=== PATIENT | male | born 1960 | race Caucasian/White ===

== ENCOUNTER 2020-10-03 23:56 | Inpatient (IN) | payer MEDICAID, SELFPAY ==
[~2020-10-03] VITALS: Ht 170.2 cm; Wt 73.0 kg
--- NOTE | 2020-10-03 23:56 | NUR ---
BIBA BLS TO ER BED 8
--- NOTE | 2020-10-03 23:58 | NUR ---
Patient being evaluated by physician at bedside.
[2020-10-04] VITALS: BP 114/62
[2020-10-04] MEDS ORDERED: NACL 0.9% 1,000 ML IV ONE (00:05)
[2020-10-04] MEDS ORDERED: LACTULOSE 20 GM/30 ML UDC PO ONE (00:05)
--- NOTE | 2020-10-04 00:27 | NUR ---
anthony swab collected and sent to lab.
--- NOTE | 2020-10-04 00:29 | NUR ---
pt currently a/o x3, gcs 14. ciwa score of 4.
[2020-10-04 00:39] LABS: HEMATOCRIT 29.5 % (36-52); MEAN CORPUSCULAR HEMOGLOBIN 37 pg (27-31); MEAN CORPUSCULAR HGB CONC 34 g/dL (33-37); MEAN CORPUSCULAR VOLUME 108.1 fL (80-94); PLATELET COUNT (AUTO) 64 K/uL (140-450); RED BLOOD CELL COUNT(AUTO) 2.73 MIL/uL (4.20-6.10); RED CELL DISTRIBUTION WIDTH 15.3 % (11.6-13.7)
[2020-10-04 00:56] LABS: LYMPHOCYTES % (MANUAL) 15 % (20-46); MONOCYTES % (MANUAL) 13 % (5-12)
[2020-10-04 01:08] LABS: ALBUMIN 2.6 g/dL (3.4-5.0); ANION GAP 12.4 (8-16); ASPARTATE AMINOTRANSFERASE 129 U/L (15-37); CARBON DIOXIDE 23.5 mmol/L (21-32); CHLORIDE 101 mmol/L (98-107); GFR ARICAN-AMERICAN 98 mL/min (>90); GLUCOSE 130 mg/dL (74-106); SODIUM SERUM 134 mmol/L (136-145); UREA NITROGEN, BLOOD 21 mg/dL (7-18)
[2020-10-04 01:12] LABS: POTASSIUM 2.9 mmol/L (3.5-5.1)
[2020-10-04] MEDS ORDERED: POTASSIUM CHLORIDE 10 MEQ TABER PO ONE ×2 (01:30→01:32)
--- NOTE | 2020-10-04 03:07 | NUR ---
report given to TESS FLETCHER. pt currently a/o x 3, gcs 13. IV sites patent. pt will be admitted under the care of Dr. Escobedo. will be going to room 106A.
[2020-10-04 04:00] VITALS: BP 136/76
--- NOTE | 2020-10-04 04:00 | NUR ---
ADMITTED PATIENT FROM ER VIA GURNEY. PATIENT A/A/OX1, PT UNSTEADY, AMBULATES WITH ASSISTS ONLY. PATIENT WENT TO THE BATHROOM TO HAVE A BOWEL MOVEMENT. PATIENT TOOK SO LONG IN THE BATHROOM. HELPED PT CHANGED TO A GOWN AND HELPED BACK IN BED, NOTED THAT THE PATIENT HAD 2 DIARRHEA WHILE IN THE BATHROOM. PATIENT WAS GIVEN A LACTULOSE IN ER. PT DENIES ANY PAIN, CHEST PAIN, PALPITATIONS AND DIZZINESS. VSS, AFEBRILE , SATING 98% ON RA. ST ON TELE MONITOR, HR-106. ORIENTED THE PATIENT TO THE ROOM SETTING AND USE OF CALL LIGHT SYSTEM. FALL PRECAUTION IMPLEMENTED. INSTRUCTED NOT TO GET OUT OF BED WITHOUT ASSISTANCE. PATIENT VERBALIZED UNDERSTANDING WITH THE POC. CALL LIGHT WITHIN REACH. WILL CONTINUE POC AND MONITORING.
--- NOTE | 2020-10-04 05:00 | NUR ---
PAGED DR FOX TO OBTAIN AN ADMISSION ORDER FOR THE PATIENT. AWAITING FOR MD TO CALL BACK.
--- NOTE | 2020-10-04 06:38 | NUR ---
PATIENT STABLE. NO ACUTE EVENT THROUGHOUT THE NIGHT. NOT IN ANY DISTRESS AND NO COMPLAIN AT THIS TIME. ALL NEEDS ATTENDED CALL LIGHT WITHIN REACH. WILL ENDORSE THE PATIENT TO THE ONCOMING RN FOR CONTINUITY OF CARE.
--- NOTE | 2020-10-04 07:01 | NUR ---
PATIENT HAS BEEN SCREENED AND CATEGORIZED MODERATE NUTRITION RISK. PATIENT WILL BE SEEN WITHIN 3-5 DAYS OF ADMISSION. 10/08/20-10/10/20 LIZZETH MOORE MS, RDN
--- NOTE | 2020-10-04 07:05 | NUR ---
RECEIVED BEDSIDE REPORT FROM CORE RESCUER NURSE FOR CONTINUITY OF CARE. PT IS ASLEEP. CHEST RISE AND FALL IS SYMMETRICAL. NO RESPIRATORY DISTRESS NOTED. SR ON TELE MONITOR. PT IS AMBULATORY WITH STANDBY ASSISTANCE. FALL PRECAUTIONS IN PLACE. SKIN IS WARM AND DRY. ABRASION TO THE LEFT ELBOW WITH DRESSING INTACT. IV IS IN THE RIGHT FOREARM 18 GAUGE RUNNING NS AT 100 ML PER HOUR PER ORDER. PT IS STABLE AT THIS TIME. PLAN OF CARE DISCUSSED.
--- NOTE | 2020-10-04 07:18 | NUR ---
ENDORSED THE PATIENT TO RN'S EMERSON AND PEGGY FOR CONTINUITY OF CARE. PATIENT STABLE. SIGNING OFF.
[2020-10-04 08:00] VITALS: BP 100/63
[2020-10-04] MEDS ORDERED: HYDROcodone/APAP 7.5/325 MG 1 TAB PO PRN (08:10)
[2020-10-04] MEDS ORDERED: ONDANSETRON 4 MG/2 ML VIAL IM/IVP PRN (08:10)
[2020-10-04] MEDS ORDERED: DOCUSATE SODIUM 100 MG GELCAP PO PRN (08:10)
[2020-10-04] MEDS ORDERED: guaiFENesin DM 200/20 MG-10 ML 10 ML UDC PO PRN (08:10)
[2020-10-04] MEDS ORDERED: ZOLPIDEM 5 MG TAB PO PRN (08:10)
[2020-10-04] MEDS ORDERED: POTASSIUM CHLORIDE 10 MEQ TABER PO PRN (08:10)
[2020-10-04] MEDS ORDERED: LORazepam 2 MG/ML VIAL IVP PRN (08:10)
[2020-10-04] MEDS ORDERED: ACETAMINOPHEN 325 MG TAB PO PRN (08:10)
[2020-10-04] MEDS ORDERED: MULTIVITAMIN-12 10 ML, THIAMINE 100 MG, FOLIC ACID 1 MG, MAGNESIUM SULFATE 50% 2,000 MG... IV SCH ×5 (09:00)
[2020-10-04] MEDS: PANTOPRAZOLE 40 MG TABEC PO SCH (09:15)
--- NOTE | 2020-10-04 09:30 | NUR ---
PT IS AWAKE, EATING BREAKFAST AT BEDSIDE. IV FLUIDS WERE STARTED. PT IS A&OX2. APPEARS TO BE CONFUSED. NO RESPIRATORY DISTRESS NOTED. BREATHING IS UNLABORED. PT IS STABLE.
[2020-10-04 10:09] LABS: PROTHROMBIN TIME 12.7 secs (10.8-13.4)
[2020-10-04 10:21] LABS: CHOL/HDL RATIO 3.7 (1-4.5); FREE T4 (FREE THYROXINE) 1.19 ng/dL (0.76-1.46); MAGNESIUM 2.2 mg/dL (1.8-2.4); PHOSPHORUS 3.4 mg/dL (2.5-4.9); THYROID STIMULATING HORMONE 0.79 uIU/mL (0.34-3.74)
--- NOTE | 2020-10-04 11:30 | NUR ---
PT IS AWAKE, WATCHING TV IN BED. PT IS CONFUSED, BUT ABLE TO ANSWER SOME QUESTIONS APPROPRIATELY. A&OX2. BREATHING IS UNLABORED. PT DENIES PAIN. PT IS STABLE.
[2020-10-04 12:00] VITALS: BP 100/56
[2020-10-04] MEDS: LORazepam 1 MG TAB PO SCH ×2 (12:53→21:01)
--- NOTE | 2020-10-04 13:17 | NUR ---
RIGHT AC IV INFILTRATED. IV WAS REMOVED AND BLEEDING WAS CONTROLLED. NEW IV WAS STARTED ON FIRST ATTEMPT TO THE LFA 22 GAUGE. IV WAS FLUSHED AND PATENT. IV FLUIDS ARE NOW INFUSING.
--- NOTE | 2020-10-04 15:42 | NUR ---
US TECH AT BEDSIDE TO PERFORM ABDOMINAL US ON PT. PT HAS BEEN NPO SINCE BREAKFAST. WILL WAIT FOR RESULTS.
[2020-10-04 16:00] VITALS: BP 99/53
--- NOTE | 2020-10-04 17:00 | NUR ---
URINE SAMPLE COLLECTED AND SENT TO LAB. URINE WAS JEANNIE COLORED WITH STRONG ODOR. PT DENIED ANY PAIN DURING URINATION. PT IS BACK TO BED. NO DISTRESS NOTED.
--- NOTE | 2020-10-04 17:58 | NUR ---
SPOKE TO BROTHER IN LAW, ANDREW WISE, WITH VERBAL CONSENT OF PT. INFORMED HIM OF THE CONDITION OF THE PT AND ALL QUESTIONS WERE ANSWERED.
[2020-10-04 18:01] LABS: APPEARANCE,URINE CLEAR (CLEAR); BILIRUBIN,URINE 2+ (NEGATIVE); BLOOD, URINE 2+ (NEGATIVE); LEUKOCYTE ESTERASE ,URINE TRACE (NEGATIVE); NITRITE, URINE POSITIVE (NEGATIVE); UGLUCOSE NEGATIVE (NEGATIVE)
[2020-10-04 18:04] LABS: COLOR,URINE AMBER (YELLOW)
[2020-10-04 18:21] LABS: RBC,URINE 11-20 (MOD) /HPF (0-5); WBC,URINE 0-5 /HPF (0-5)
[2020-10-04 18:22] LABS: HYALINE CASTS, URINE 0-10 /LPF (None Seen)
--- NOTE | 2020-10-04 18:53 | NUR ---
TEXTED DR. FOX TO ASK IF HE WOULD LIKE TO REDRAW THE POTASSIUM LEVEL THE LAST ONE DRAWN WAS AT 0030 AM TODAY AND THE LEVEL WAS 2.9. INFORMED HIM THAT 20 MEQ KDUR WAS GIVEN AT THAT TIME. WILL WAIT FOR RESPONSE BACK.
--- NOTE | 2020-10-04 18:55 | NUR ---
DR. FOX RESPONDED BACK TO GIVE THE PT 40 MEQ IV KRIDER AND RECHECK POTASSIUM IN THE AM. WILL ADMINISTER ONCE VERIFIED.
[2020-10-04] MEDS ORDERED: KCL 20 MEQ/WATER INJ PREMIX 200 ML IV SCH (19:00)
[2020-10-04] MEDS: NACL 0.9% 1,000 ML IV SCH (19:24)
--- NOTE | 2020-10-04 19:26 | NUR ---
KCL 40 MEQ STARTED IV ORDERED FOR POTASSIUM LEVEL OF 2.9. MEDICATION EDUCATION WAS PROVIDED. PT VERBALIZED UNDERSTANDING.
--- NOTE | 2020-10-04 19:27 | NUR ---
ENDORSED PT TO ROUGH AND TRUEING MACHINE OPERATOR NURSE FOR CONTINUITY OF CARE. PT IS STABLE AT THIS TIME. PLAN OF CARE DISCUSSED.
--- NOTE | 2020-10-04 20:00 | NUR ---
RECEIVED PATIENT AWAKE AND ALERT IN BED. PT ON ROOM AIR. NO SOB OR C/O DISTRESS AT THIS TIME. BILATERAL LOWER EXTREMITY +2 PITTING EDEMA NOTED. PT ON TELE MONITORING. POC DISCUSSED WITH THE PATIENT. BED LOWERED WITH CALL LIGHT WITHIN REACH.
[2020-10-04 20:56] VITALS: BP 101/61
[2020-10-04 21:26] LABS: BARBITURATE, URINE NEGATIVE ng/ml (NEG <=200); BENZODIAZEPINE, URINE NEGATIVE ng/mL (NEG <=200); CANNABINOID, URINE NEGATIVE ng/mL (NEG <=50); COCAINE, URINE NEGATIVE ng/mL (NEG <=300); OPIATE, URINE NEGATIVE ng/mL (NEG <=2000); PHENCYCLIDINE SCREEN,URINE NEGATIVE ng/mL (NEG <=25)
[2020-10-05 00:04] VITALS: BP 93/51
--- NOTE | 2020-10-05 02:00 | NUR ---
PT ASLEEP IN BED. NO S/S OF DISTRESS NOTED
[2020-10-05 04:51] VITALS: BP 94/49
[2020-10-05] MEDS: NACL 0.9% 1,000 ML IV SCH ×3 (05:00→23:50)
--- NOTE | 2020-10-05 05:50 | NUR ---
PATIENT PULLED OUT HIS IV LINE. NEW LINE STARTED ON THE RIGHT FOREARM 20G. PT'S GOWN AND BED LINENS CHANGED Addendum: 10/05/20 at 0713 by Nathen Lovett RN LEFT FOREARM
[2020-10-05] MEDS: LORazepam 1 MG TAB PO SCH ×3 (06:23→21:52)
[2020-10-05 07:10] LABS: T4 (THYROXINE) 6.9 ug/dL (4.5-12.0)
[2020-10-05 07:11] LABS: BASOPHILS % (AUTO) 0.8 % (0.0-2.0); EOSINOPHILS # (AUTO) 0.2 K/uL (0-0.4); EOSINOPHILS % (AUTO) 3.8 % (0.0-4.0); HEMOGLOBIN 9.5 g/dL (12.0-18.0); LYMPHOCYTES # (AUTO) 1.1 K/uL (2.0-11.5); LYMPHOCYTES % (AUTO) 26.4 % (20.5-51.1); MEAN CORPUSCULAR HEMOGLOBIN 37 pg (27-31); MEAN CORPUSCULAR HGB CONC 34 g/dL (33-37); MEAN CORPUSCULAR VOLUME 108.9 fL (80-94); MONOCYTES # (AUTO) 0.7 K/uL (0.8-1.0); MONOCYTES % (AUTO) 17.2 % (1.7-9.3); NEUTROPHILS # (AUTO) 2.1 K/uL (1.8-7.7); NEUTROPHILS % (AUTO) 51.8 % (42.2-75.2); PLATELET COUNT (AUTO) 57 K/uL (140-450); RED BLOOD CELL COUNT(AUTO) 2.57 MIL/uL (4.20-6.10); RED CELL DISTRIBUTION WIDTH 14.9 % (11.6-13.7)
[2020-10-05 07:25] LABS: ANION GAP 10.4 (8-16); CARBON DIOXIDE 24.7 mmol/L (21-32); CREATININE 0.7 mg/dL (0.6-1.3); POTASSIUM 3.1 mmol/L (3.5-5.1)
--- NOTE | 2020-10-05 07:25 | NUR ---
PT REPORT GIVEN TO AM NURSE. PT ENDORSED IN STABLE CONDITION
--- NOTE | 2020-10-05 07:27 | NUR ---
RECEIVED REPORT FROM NIGHT NURSE. PER NIGHT NURSE, PT WAS FOUND ON THE STREET FOR ALCOHOL INTOXICATION. PT IS A&OX2. PT IS BREATHING ON ROOM AIR. PT IS ON A HEPATIC DIET AND HAD A SONIA MOVEMNT LAST NIGHT. PT HAS A DISTENDED ABDOMEN. PT HAS ABRASION ON LEFT ELBOW AND SCABS THROUGHOUT BODY. PT PULLED OUT HIS IV LAST NIGHT. PT HAS A LFA 20 G IV. PT IS SLEEPING AND APPEAR NOT TO BE IN DISTRESS. BED IS ALL THE WAY DOWN AND 2 SIDE RAILS ARE UP. SAFETY PRECAUTIONS ARE IN PLACE. WILL CONTINUE PLAN OF CARE. Addendum: 10/05/20 at 0756 by Lynn Cuba RN BANANA BAG GIVEN YESTERDAY, PITTING EDEMAS ON LOWER EXTREMITIES AND KDUR AND KRIDER GIVEN POTASSIUM LEVEL AT 2.9. LAST BOWEL MOVEMENT 10/04/20. WILL CONTINUE TO MONITOR.
[2020-10-05 08:00] VITALS: BP 102/58
[2020-10-05] MEDS: FOLIC ACID 1 MG TAB PO SCH (09:21)
[2020-10-05] MEDS: THIAMINE 100 MG TAB PO SCH (09:21)
[2020-10-05] MEDS: PANTOPRAZOLE 40 MG TABEC PO SCH (09:22)
[2020-10-05] MEDS: MULTIVITAMIN 1 TAB PO SCH (09:23)
[2020-10-05] MEDS: LACTULOSE 20 GM/30 ML UDC PO SCH (09:25)
--- NOTE | 2020-10-05 09:32 | NUR ---
ADMINISTERED SCHEDULED MEDICATIONS PER MD ORDER. ADMINISTERED 4MEQ K-DUR. POTTASIUM LEVEL IS 2.9. WRAPPER SORTER ADMINISTERED A K-RIDER LAST NIGHT. SEIZURE PRECAUTIONS ARE IN PLACE WITH PADDEDD SIDE RAILS. PT IS A&OX2. SAFETY PRECAUTIONS ARE IN PLACE. WILL CONTINUE TO MONITOR.
--- NOTE | 2020-10-05 11:57 | NUR ---
SPOKE TO PT BROTHER IN LAW ANDREW TO GET UPDATES AND STATUS OF THE PATIENT. WILL CONTINUE TO MONITOR.
--- NOTE | 2020-10-05 13:00 | NUR ---
ASSESSES WOUND ON LEFT ELBOW WHICH MEASURES 1CM BY 2CM. WOUND HAD NO DRAINAGE AND APPEARED TO BE INTACT. WOUND BED WAS PINK AND WHITE. CLEANED WOUND WITH WOUND DIAPHRAGM BUILDER. APPLIED CURAD AND COVERED IT WITH GAUZE. APPLIED DRESSSING AROUND ELBOW TO SECURE THE CURAD. PT TOLERATED THE WOUND DRESSING CHANGE WELL. PT DOES NOT COMPPLAIN OF PAIN. PT WAS EDUCATED ON NOT TOUCHING WOUND AND WASHING HANDS FREQUENTLY TO PREVENT INFECTION. PT VERBALIZED HE UNDERSTOOD. PT IS STABLE AND UNDER NO APPARENT DISTRESS. SAFETY PROTOCOLS ARE IN PLACE. CALL LIGHT IS WITHIN REACH. WILL CONTINUE TO MONITOR.
--- NOTE | 2020-10-05 13:01 | NUR ---
HELD ATIVAN DUE TO BP BEING 91/52, SC: 85. PT IS NOT UNDER DISTRESS. PT IS STABLE. WILL CONTINUE TO RE ASSESS PT. CALL LIGHT IS WITHIN REACH. SAFETY PROTOCOLS ARE IN PLAC. WILL CONTINUE TO MONITOR.
--- NOTE | 2020-10-05 15:55 | NUR ---
PT BLOOD CULTURE POSITIVE FOR GRAM NEGATIVE RODS DR [place] AWARE
[2020-10-05 16:00] VITALS: BP 119/52
[2020-10-05] MEDS ORDERED: LEVOFLOXACIN 750 MG/D5W PREMIX 150 ML IV SCH (16:00)
--- NOTE | 2020-10-05 16:08 | NUR ---
LEVOFLOXACIN 750 MG IV GIVEN INFUSING WELL AT 100 MLS/HR. NO DISTRESS NOTED PT IS RESTING, WILL CONTINUE TO MONITOR.
--- NOTE | 2020-10-05 19:30 | NUR ---
ENDORSED TO NIGHT NURSE FOR CONTINUITY OF CARE.
--- NOTE | 2020-10-05 19:31 | NUR ---
RECEIVED REPORT FROM AM NURSE. PATIENT IN BED LYING AWAKE, ALERT, NO SOB. RESPIRATION EVEN UNLABORED. AFEBRILE. SKIN WARM AND DRY TO TOUCH. ATE 100% OF HIS DINNER. DENIES PAIN. IVF NS INFUSING AT 100 ML/HR ON THE LFA TOLERATING WELL. SAFETY MEASURES IN PLACE.
--- NOTE | 2020-10-05 21:52 | NUR ---
MEDICATION GIVEN SCHEDULED.
[2020-10-06] VITALS: BP 107/62
[2020-10-06] MEDS: LORazepam 1 MG TAB PO SCH ×3 (05:19→20:14)
[2020-10-06 06:32] LABS: BASOPHILS % (AUTO) 0.9 % (0.0-2.0); EOSINOPHILS # (AUTO) 0.1 K/uL (0-0.4); EOSINOPHILS % (AUTO) 3.2 % (0.0-4.0); HEMATOCRIT 26.5 % (36-52); HEMOGLOBIN 8.9 g/dL (12.0-18.0); LYMPHOCYTES # (AUTO) 1.1 K/uL (2.0-11.5); LYMPHOCYTES % (AUTO) 27.9 % (20.5-51.1); MEAN CORPUSCULAR HEMOGLOBIN 37 pg (27-31); MEAN CORPUSCULAR HGB CONC 34 g/dL (33-37); MEAN CORPUSCULAR VOLUME 109.7 fL (80-94); MONOCYTES # (AUTO) 0.7 K/uL (0.8-1.0); MONOCYTES % (AUTO) 17.5 % (1.7-9.3); NEUTROPHILS # (AUTO) 1.9 K/uL (1.8-7.7); NEUTROPHILS % (AUTO) 50.5 % (42.2-75.2); PLATELET COUNT (AUTO) 57 K/uL (140-450); RED BLOOD CELL COUNT(AUTO) 2.41 MIL/uL (4.20-6.10); RED CELL DISTRIBUTION WIDTH 15.3 % (11.6-13.7); WHITE BLOOD COUNT (AUTO) 3.8 K/uL (4.8-10.8)
[2020-10-06 06:56] LABS: ANION GAP 10.2 (8-16); CARBON DIOXIDE 23.4 mmol/L (21-32); CREATININE 0.8 mg/dL (0.6-1.3); POTASSIUM 3.6 mmol/L (3.5-5.1)
--- NOTE | 2020-10-06 07:15 | NUR ---
ENDORSED TO AM NURSE FOR CONTINUITY OF CARE. PT IS STABLE
[2020-10-06] MEDS: PANTOPRAZOLE 40 MG TABEC PO SCH (09:46)
[2020-10-06] MEDS: MULTIVITAMIN 1 TAB PO SCH (09:46)
[2020-10-06] MEDS: FOLIC ACID 1 MG TAB PO SCH (09:46)
[2020-10-06] MEDS: LACTULOSE 20 GM/30 ML UDC PO SCH ×2 (09:48→18:20)
[2020-10-06] MEDS: THIAMINE 100 MG TAB PO SCH (09:48)
[2020-10-06 10:32] VITALS: BP 108/63
[2020-10-06] MEDS: levoFLOXacin 750 MG TAB PO SCH (15:21)
--- NOTE | 2020-10-06 15:23 | NUR ---
alert, disoriented, dressed up with street clothes, " want to go back to my jail", via an ichthyology teacher who is staff on floor, did not know he is hospitalized, and why. reoriented and explained to the patient, still leaves shoes and street clothes on. asked whether a new HL can be reinserted, adamantly refused. " I dont need that, I am not sick" Levaquin changed to po for the purpose. No sign of withdrawal noted, on ATIVAN po, one mg.
--- NOTE | 2020-10-06 18:21 | NUR ---
SEEN BY NEPHRO TODAY, LACTULOSE INCREASED TO TID. AMMONIA LEVEL TRENDING UP, 68 . ATTTEMPTED TO ASK AGAIN WHETHER WE CAN REINSERT A NEW HL, DECLINED.
[2020-10-06] MEDS: NACL 0.9% 1,000 ML IV SCH ×2 (19:24→20:09)
--- NOTE | 2020-10-06 19:30 | NUR ---
RECEIVED BEDSIDE REPORT FROM DAY RN. PT IS AAOX2. RESPIRATIONS ARE EQUAL AND UNLABORED ON ROOM AIR. LUNG SOUNDS ARE CLEAR. SKIN IS INTACT. COLOR IS MARY LOU FOR ETHNICITY. C/C ALOC PT IS HOMELESS. AMMONIA TRENDING UP LACTULOSE INCREASED. POC DISCUSSED WITH PT. NO IV ACCESS MD IS AWARE. CALL LIGHT IS WITHIN REACH. ALL NEEDS MET. CALL LIGHT IS WITHIN REACH.
[2020-10-06 20:00] VITALS: BP 129/82
--- NOTE | 2020-10-06 20:14 | NUR ---
VITAL SIGNS ARE WITHIN NORMAL LIMITS. REN MEDICATIONS GIVEN, MED EDUCATION GIVEN. WILL CONTINUE TO MONITOR.
--- NOTE | 2020-10-06 22:24 | NUR ---
ROUNDS MADE. PT OBSERVED LAYING IN BED. APPEARS TO BE ASLEEP. CHEST RISE AND FALL NOTED. WILL CONTINUE TO MONITOR.
--- NOTE | 2020-10-07 | NUR ---
ROUNDS MADE. PT IS RESTING COMFORTABLY IN BED APPEARS TO BE ASLEEP. CHEST RISE AND FALL NOTED. CALL LIGHT IS WITHIN REACH.
--- NOTE | 2020-10-07 02:04 | NUR ---
ROUNDS MADE. PT APPEARS TO BE ASLEEP. CHEST RISE AND FALL NOTED.
[2020-10-07 04:00] VITALS: BP 118/72
--- NOTE | 2020-10-07 04:00 | NUR ---
VITAL SIGNS ARE WITHIN NORMAL LIMITS. ALL SAFETY MEASURES ARE IN PLACE.
[2020-10-07] MEDS: NACL 0.9% 1,000 ML IV SCH ×2 (05:09→17:00)
[2020-10-07 06:13] LABS: BASOPHILS % (AUTO) 0.8 % (0.0-2.0); EOSINOPHILS # (AUTO) 0.2 K/uL (0-0.4); EOSINOPHILS % (AUTO) 3.5 % (0.0-4.0); HEMATOCRIT 26.5 % (36-52); HEMOGLOBIN 8.8 g/dL (12.0-18.0); LYMPHOCYTES # (AUTO) 1.2 K/uL (2.0-11.5); LYMPHOCYTES % (AUTO) 26.7 % (20.5-51.1); MEAN CORPUSCULAR HEMOGLOBIN 36 pg (27-31); MEAN CORPUSCULAR HGB CONC 33 g/dL (33-37); MEAN CORPUSCULAR VOLUME 109.2 fL (80-94); MONOCYTES # (AUTO) 0.8 K/uL (0.8-1.0); NEUTROPHILS # (AUTO) 2.3 K/uL (1.8-7.7); PLATELET COUNT (AUTO) 67 K/uL (140-450); RED BLOOD CELL COUNT(AUTO) 2.43 MIL/uL (4.20-6.10); RED CELL DISTRIBUTION WIDTH 15.5 % (11.6-13.7); WHITE BLOOD COUNT (AUTO) 4.5 K/uL (4.8-10.8)
[2020-10-07 06:22] LABS: ANION GAP 9.3 (8-16); CARBON DIOXIDE 24.6 mmol/L (21-32); CREATININE 0.7 mg/dL (0.6-1.3); POTASSIUM 3.9 mmol/L (3.5-5.1)
[2020-10-07] MEDS: LORazepam 1 MG TAB PO SCH ×3 (06:23→21:00)
--- NOTE | 2020-10-07 06:23 | NUR ---
ATIVAN GIVEN LATE D/T PT WAS ASLEEP. PT IS WAKE NOW SITTING IN BED WATCHING TV. PT DENIES ANY S/SX OF DISTRESS. MED EDUCATION GIVEN. ALL NEEDS MET. CALL LIGHT IS WITHIN REACH.
--- NOTE | 2020-10-07 07:16 | NUR ---
GAVE BEDSIDE REPORT TO DAY RN. PT ENDORSED IN STABLE CONDITION.
--- NOTE | 2020-10-07 07:21 | NUR ---
RECEIVED BEDSIDE REPORT FROM NIGHTSHIFT NURSE. PT RESTING IN BED. ABLE TO MAKE NEEDS KNOWN. RESPIRATIONS EVEN AND UNLABORED WITH NO SOB OR RESPIRATORY DISTRESS. SKIN WARM AND DRY TO TOUCH. SAFETY MEASURES IN PLACE. WILL CONTINUE TO MONITOR
[2020-10-07 08:00] VITALS: BP 102/69
[2020-10-07] MEDS: LACTULOSE 20 GM/30 ML UDC PO SCH ×3 (08:51→17:55)
[2020-10-07] MEDS: FOLIC ACID 1 MG TAB PO SCH (08:52)
[2020-10-07] MEDS: MULTIVITAMIN 1 TAB PO SCH (08:52)
[2020-10-07] MEDS: PANTOPRAZOLE 40 MG TABEC PO SCH (08:53)
[2020-10-07] MEDS: THIAMINE 100 MG TAB PO SCH (08:53)
[2020-10-07] MEDS: CHLORHEXADINE GLUC 2% CLOTH TP SCH (08:53)
[2020-10-07] MEDS: MUPIROCIN CA NASAL 2% 1GM TUBE NS SCH (08:56)
--- NOTE | 2020-10-07 08:56 | NUR ---
ADMINISTERED SCHED MED PRESCRIBED PER MD ORDER. PT TOLERATED WELL. MEDICATION EDUCATION PERFORMED. SAFETY MEASURES IN PLACE. WILL CONTINUE TO MONITOR
[2020-10-07] MEDS ORDERED: levoFLOXacin 750 MG TAB PO SCH (09:00)
--- NOTE | 2020-10-07 10:15 | NUR ---
PATIENT RESTING IN BED. ABLE TO MAKE NEEDS KNOWN. RESPIRATIONS EVEN AND UNLABORED WITH NO SOB OR RESPIRATORY DISTRESS. SAFETY MEASURES IN PLACE. WILL CONTINUE TO MONITOR
--- NOTE | 2020-10-07 12:05 | NUR ---
VITAL SIGNS OBTAINED PATIENT STABLE WITH EVEN AND UNLABORED RESPIRATIONS
--- NOTE | 2020-10-07 13:20 | NUR ---
ADMINISTERED SCHED MED PRESCRIBED PER MD ORDER. PT TOLERATED WELL. MEDICATION EDUCATION PERFORMED. SAFETY MEASURES IN PLACE. WILL CONTINUE TO MONITOR
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
[2020-10-07] MEDS: levoFLOXacin 750 MG TAB PO SCH (16:02)
--- NOTE | 2020-10-07 16:05 | NUR ---
ADMINISTERED SCHED MED PRESCRIBED PER MD ORDER. PT TOLERATED WELL. MEDICATION EDUCATION PERFORMED. SAFETY MEASURES IN PLACE. WILL CONTINUE TO MONITOR
--- NOTE | 2020-10-07 17:00 | NUR ---
ADMINISTERED SCHED MED PRESCRIBED PER MD ORDER. PT TOLERATED WELL. MEDICATION EDUCATION PERFORMED. SAFETY MEASURES IN PLACE. WILL CONTINUE TO MONITOR
--- NOTE | 2020-10-07 18:05 | NUR ---
PT ASLEEP IN BED. RESPONSIVE TO VERBAL AND TACTILE STIMULI. RESPIRATIONS EVEN AND UNLABORED WITH NO SOB OR RESPIRATORY DISTRESS. SAFETY MEASURES IN PLACE. WILL CONTINUE TO MONITOR
--- NOTE | 2020-10-07 19:28 | NUR ---
ENDORSED AT BEDSIDE TO NIGHTSHIFT NURSE FOR CONTINUITY OF CARE
--- NOTE | 2020-10-07 19:29 | NUR ---
RECEIVED REPORT FROM AM SHIFT. PT AA, AMBULATING IN ROOM TO BRP, CALM AND QUIET, VOICES NO C/O PAIN OR DISCOMFORT. ASLEEP AT INTERVALS.
[2020-10-07 20:10] VITALS: BP 118/70
--- NOTE | 2020-10-07 22:20 | NUR ---
MED PASS DONE. PT TOLERATED WELL. BED LINEN TO BE CHANGED, PT REFUSED, AGREEING TO CHANGING IT IN EARLY AM.
--- NOTE | 2020-10-08 00:30 | NUR ---
ON ROUNDS PT ASLEEP. RESP REG NON-LABORED. NAD NOTED
--- NOTE | 2020-10-08 02:15 | NUR ---
ON ROUNDS PT ASLEEP. RESP REG NON-LABORED. NAD NOTED
[2020-10-08] MEDS: NACL 0.9% 1,000 ML IV SCH ×2 (02:38→13:00)
[2020-10-08 06:28] LABS: BASOPHILS % (AUTO) 0.8 % (0.0-2.0); EOSINOPHILS # (AUTO) 0.2 K/uL (0-0.4); EOSINOPHILS % (AUTO) 3.1 % (0.0-4.0); HEMATOCRIT 28.6 % (36-52); HEMOGLOBIN 9.5 g/dL (12.0-18.0); LYMPHOCYTES # (AUTO) 1.4 K/uL (2.0-11.5); LYMPHOCYTES % (AUTO) 27.9 % (20.5-51.1); MEAN CORPUSCULAR HEMOGLOBIN 37 pg (27-31); MEAN CORPUSCULAR HGB CONC 33 g/dL (33-37); MONOCYTES # (AUTO) 0.9 K/uL (0.8-1.0); MONOCYTES % (AUTO) 17.3 % (1.7-9.3); NEUTROPHILS # (AUTO) 2.6 K/uL (1.8-7.7); NEUTROPHILS % (AUTO) 50.9 % (42.2-75.2); PLATELET COUNT (AUTO) 87 K/uL (140-450); RED CELL DISTRIBUTION WIDTH 15.5 % (11.6-13.7); WHITE BLOOD COUNT (AUTO) 5.1 K/uL (4.8-10.8)
[2020-10-08 06:33] LABS: ANION GAP 9.1 (8-16); CARBON DIOXIDE 26.6 mmol/L (21-32); CREATININE 0.7 mg/dL (0.6-1.3); POTASSIUM 3.7 mmol/L (3.5-5.1)
--- NOTE | 2020-10-08 06:45 | NUR ---
AM CARE DONE, ENTIRE SOILED BED LINEN CHANGED.
--- NOTE | 2020-10-08 06:50 | NUR ---
PT OOB TO CHAIR STATES HE IS WAITING FOR BREAKFAST. NO S/SF DISTRESS NOTED
--- NOTE | 2020-10-08 07:15 | NUR ---
RECEIVED REPORT FROM PRODUCTION SHIFT SUPERVISOR RN FOR CONTINUITY OF CARE. PATIENT IS AOX2-3, ABLE TO MAKE NEEDS KNOWN. MED SURG. ON HEPATIC DIET. NO IV SITES. LEFT ELBOW HAS A SKIN TEAR, OPTIFOAM PLACED FOR COVER. ON CONTACT PRECAUTION FOR MRSA OF THE NARES. AMBULATORY, ABLE TO USE RESTROOM, AND SHOWER. SAFETY MEASURES IN PLACE, BED IN LOW POSITION, BED LOCKED, AND CALL LIGHT WITHIN REACH. WILL CONTINUE TO MONITOR.
[2020-10-08] MEDS: LORazepam 1 MG TAB PO SCH ×2 (07:51→13:24)
--- NOTE | 2020-10-08 07:52 | NUR ---
0500 ATIVAN NOT CHARTED AT START OF SHIFT.
[2020-10-08 08:00] VITALS: BP 107/61
[2020-10-08] MEDS: MUPIROCIN CA NASAL 2% 1GM TUBE NS SCH (08:57)
[2020-10-08] MEDS: LACTULOSE 20 GM/30 ML UDC PO SCH ×2 (08:57→13:25)
[2020-10-08] MEDS: PANTOPRAZOLE 40 MG TABEC PO SCH (08:58)
[2020-10-08] MEDS: THIAMINE 100 MG TAB PO SCH (08:58)
[2020-10-08] MEDS: CHLORHEXADINE GLUC 2% CLOTH TP SCH (08:58)
[2020-10-08] MEDS: FOLIC ACID 1 MG TAB PO SCH (08:58)
[2020-10-08] MEDS: MULTIVITAMIN 1 TAB PO SCH (08:58)
--- NOTE | 2020-10-08 09:00 | NUR ---
ADMINISTERED SCHEDULED AM MEDICATIONS. WILL CONTINUE TO MONITOR.
[2020-10-08] MEDS ORDERED: VANC125C11 PO (10:24)
[2020-10-08] MEDS ORDERED: LEVO500T98 PO (10:24)
[2020-10-08 10:59] VITALS: BP 107/61
--- NOTE | 2020-10-08 13:25 | NUR ---
ADMINISTERED AFTERNOON MEDICATIONS. WILL CONTINUE TO MONITOR.
--- NOTE | 2020-10-08 13:55 | NUR ---
PATIENT ATTEMPTED TO LEAVE. EXPLAINED TO HIM TO GO OVER DISCHARGE FORMS THEN CAN LEAVE.
--- NOTE | 2020-10-08 14:00 | NUR ---
PATIENT REFUSED DISCHARGE LEFT ELBOW WOUND PICTURE.
--- NOTE | 2020-10-08 14:05 | NUR ---
PATIENT VERBALIZED UNDERSTANDING OF DISCHARGE INSTRUCTIONS AND SIGNED HOMELESSNESS RESOURCE. PATIENT IS DRESSED APPROPRIATELY FOR DISCHARGE. WILL CONTINUE TO MONITOR.
--- NOTE | 2020-10-08 14:10 | NUR ---
PATIENT WAS DISCHARGED AND WAS ESCORTED TO THE DOOR.
--- NOTE | 2020-10-08 14:15 | NUR ---
HEALTH SERVICES DIRECTOR AWARE OF DISCHARGE.
== END 2020-10-08 14:10 | disposition home or self-care (01) | DRG 280 ==
LOC: MED 23:56 → MTU 10-04 02:55
PROVIDERS: ADMIT Family Medicine; ATTEND Family Medicine
DX: K70.30 Alcoholic cirrhosis of liver without ascites (principal); E43 Unspecified severe protein-calorie malnutrition; G92 Toxic encephalopathy; K72.90 Hepatic failure, unspecified without coma; E86.0 Dehydration; E87.1 Hypo-osmolality and hyponatremia; E87.6 Hypokalemia; Z20.822 Contact with and (suspected) exposure to COVID-19; B96.89 Other specified bacterial agents as the cause of diseases classified elsewhere; D64.9 Anemia, unspecified; F10.130 Alcohol abuse with withdrawal, uncomplicated; F17.210 Nicotine dependence, cigarettes, uncomplicated; K76.0 Fatty (change of) liver, not elsewhere classified; K80.20 Calculus of gallbladder without cholecystitis without obstruction; F15.90 Other stimulant use, unspecified, uncomplicated; N40.0 Benign prostatic hyperplasia without lower urinary tract symptoms; N39.0 Urinary tract infection, site not specified; E83.51 Hypocalcemia; F10.120 Alcohol abuse with intoxication, uncomplicated; Z59.0 Homelessness; Y90.0 Blood alcohol level of less than 20 mg/100 ml; Z68.25 Body mass index [BMI] 25.0-25.9, adult
CPT/HCPCS: 36415; 71045; 76700; 80048; 80053; 80305; 81001; 82140; 82150; 83036; 83690; 83735; 83880; 84100; 84436; 84439; 84443; 84479; 84484; 85025; 85610; 85730; 87040; 87081; 93005; 96360; 99285; A9153; G0482; J1956; J3411; J3475; J3480; J3490